=== PATIENT | female | born 1955 | race Hispanic/Latino ===

== ENCOUNTER 2016-12-11 14:33 | Emergency (ER) | payer OTHER ==
[~2016-12-11] VITALS: Ht 162.6 cm; Wt 65.4 kg
[2016-12-11] MEDS ORDERED: MOBIC7.5 MG PO (17:51)
[2016-12-11] MEDS ORDERED: NORCO 5/3251 TABLET PO (17:51)
[2016-12-11 18:49] VITALS: BP 147/82
== END 2016-12-11 18:50 | disposition home or self-care (01) ==
LOC: EME 14:33
DX: M25.562 Pain in left knee (principal); Z96.652 Presence of left artificial knee joint; I10 Essential (primary) hypertension
CPT/HCPCS: 73564; 99281; 99283